=== PATIENT | female | born 1975 | race Caucasian/White ===

== ENCOUNTER 2022-02-10 08:37 | Outpatient (REF) | payer OTHER, SELFPAY ==
--- NOTE | 2022-02-10 08:30 | PAPFT_PTH ---
PATIENT: Bridget Couch LOC: [facility] U#:[id number] AGE/SX: 46/F ROOM: RE02/10/[address]: Gwen Red APRN : 1975 BED: DIS: 02/10/2022 SPEC #: [id number] RECD: 02/10/22 17:52 STATUS: OLIVERIO REQ #: [id number] THOMAS: 02/10/22 08:[address]: Gwen Red DEPT: [facility] Cytology RECD BY: Britt Hernandez ENTERED: 02/10/22 17:53 SP TYPE: PAPFT OTHR DR: Tracey Hernandez APRN Tissues: 1 - CX/ENDOCX FOR PAP SMEARS Procedures: PAP THIN PREP/UVM Screening Comments: [id number] (UNSATISFACTORY FOR EVALUATION)
== END 2022-02-10 08:38 | disposition home or self-care (01) ==
LOC: LBN 08:37
PROVIDERS: PCP Nurse Practitioner Family; Visit Provider Nurse Practitioner
DX: Z12.4 Encounter for screening for malignant neoplasm of cervix (principal); R87.615 Unsatisfactory cytologic smear of cervix
CPT/HCPCS: 88142

== ENCOUNTER → 2022-03-12 00:46 | Outpatient (CLI) | payer OTHER, SELFPAY ==
--- NOTE | 2022-03-12 08:15 | DI.US_ITS ---
Exam(s) US BREAST LT COMPLETE US BREAST RT COMPLETE MG MAMMO DIAGNOSTIC BI EXAM: MG MAMMO DIAGNOSTIC BI AND COMPLETE BILATERAL BREAST ULTRASOUND CLINICAL HISTORY: 6 mo f/u cat 3 mammo (Sep 23 in [place]),R92.8. TECHNIQUE: Both CC and MLO mammographic images of both breast were obtained with 3D tomosynthesis te chnique and utilizing computer aided detection (CAD). Also performed complete bilateral breast ultrasound including all 4 quadrants of both breasts, the re troareolar regions of both breasts and both axillary regions. COMPARISON: There are no prior images for comparison ([place]): Only prior reports available. FINDINGS: DIAGNOSTIC BILATERAL MAMMOGRAM: There are intact bilateral retropectoral implants. There are no spiculated masses nor malignant-appe aring microcalcification groups in either breast. In the left breast there are 2 adjacent small nodular densities lateral of center approximately 2 o'c lock position, larger of the 2 measuring 4 x 3 millimeters. No malignant-appearing microcalcificatio n groups in this region or elsewhere in either breast. Right breast reveals small asymmetric density laterally measuring approximately 5 x 3 millimeters, bu t equivocal on 3D imaging. No significant architectural distortion or skin thickening-traction either breast. COMPLETE BILATERAL BREAST ULTRASOUND: Left breast: There are 2 small microcysts in the upper outer quadrant at 2 o'clock and 3 o'clock posi tions, correspond to the findings on the mammogram. The 2 o'clock position microcyst measures 4 x 2 millimeters. The 3 o'clock position microcyst measures 2 x 2 millimeters. At the 4 o'clock position there is a lateral thoracic benign lymph node measuring 5 x 3 millimeters. There are no solid lesions in all 4 quadrants of the left breast. Retroareolar region unremarkable. Left axilla unremarkable. Right breast: Very subtle and difficult to reproduce finding at the 9 o'clock position which has appe arance of a tiny 3 x 1.5 millimeter microcyst. No other focal findings in all 4 quadrants. Retroare olar region unremarkable. Right axilla unremarkable. IMPRESSION: Benign-appearing bilateral findings including 2 microcysts in the upper-outer quadrant of the left br east (2 and 3 o'clock positions) and tiny benign-appearing micro cyst at 9 o'clock position of the ri ght breast. No solid lesions evident. No axillary adenopathy. Intact appearing bilateral retropectoral implants. Appropriate follow-up, as discussed by myself with the patient today, is repeat bilateral breast ultr asound in 6 months, with earlier imaging if a self detected breast change is noted.. The patient was informed of the findings and follow-up recommendations prior to leaving the [facility] t today. BI-RADS Category 3 - 6 month - Probably Benign Finding: Recommend follow-up mammography in 6 months Breast Density - Category B - Scattered areas of fibroglandular density Breast density Category C or D implies that the patient has dense breast tissue. Dense breast tissue can make it harder to find cancer on a mammogram. Dense breast tissue is also associated with an incr eased risk of breast cancer. This information about the result of the mammogram report was provided to the patient to raise their awareness. Use this report when you speak with the patient about their risks for breast cancer, which includes their family history. At that time, you may recommend additional screening tests (Ultrasoun d or MRI) as these tests may add significant information. A negative radiographic report should not delay biopsy if a dominant or clinically suspicious mass is present. Up to ten percent of cancers are not identified on mammography. A negative report may reinforce clinical impression. Adenosis and dense breasts may obscure an underlying neoplasm. False positive reports average 6 to 10%. Patient will receive a letter notifying them of these results.
== END ==
PROVIDERS: PCP Nurse Practitioner Family; Visit Provider Nurse Practitioner Family
DX: R92.8 Other abnormal and inconclusive findings on diagnostic imaging of breast (principal); R92.0 Mammographic microcalcification found on diagnostic imaging of breast
CPT/HCPCS: 76642; 77062; 77066; G0279

== ENCOUNTER 2022-03-13 19:35 | Emergency (ER) | payer OTHER, SELFPAY ==
[2022-03-13 19:39] VITALS: BP 111/78; PULSE 99; RESP 14; TEMP 36.6; O2SAT 99
--- NOTE | 2022-03-13 19:40 | ED.GENADUL_ITS ---
Discharge Plan Disposition Patient Disposition: HOME Condition: Stable Discharge Details Chief Complaint: Laceration Clinical Impression: Foreign body finger, Open wnd finger-complicated Primary Care Provider: Tracey Hernandez ED Provider: Aj Henson Home Meds and New Rx's Prescriptions: No Action multivitamin Tablet 1 tab PO DAILY diphenhydramine HCl [Benadryl Allergy] 25 mg tablet 25 mg PO QHS PRN omeprazole 20 mg capsule,delayed release(DR/EC) 20 mg PO DAILY Qty: 90 3RF Rx Instructions: Take 20 mg once daily in the morning at least 30 minutes before first meal mupirocin 2 % ointment 1 applic topical TID Qty: 15 0RF Discharge Instructions Instructions: Soft Tissue Foreign Body (ED) Additional Instructions: Please continue to take your antibiotics as prescribed. Please follow-up with [facility] hand specialty clinic next week. Please return to the emergency department if you develop worsening pain swelling pus drainage fevers chills or dysfunction of your finger or hand. Medical Decision Making 46-year-old female presents with poorly healing wound to the distal aspect of her second digit of her right hand for the last 2 months, afebrile nontoxic no systemic signs of illness, localized induration, 1 cm shallow wound with surrounding callus and scab, no fluctuance or purulence, flexion extension intact sensation and capillary refill intact, bedside ultrasound negative for foreign body in region of wound, x-ray displaying radiopaque structure more proximal to site of wound consider retained foreign body. Patient is currently on Keflex that was prescribed by urgent care. Will be given hand referral for next week for consideration of surgical removal of potential foreign body. At this time patient is neurovascularly intact, motor function is intact patient has no systemic signs of illness. Will be discharged home with care instructions and return precautions. HPI General Date/Time Provider Initiated Documentation: 03/13/22 19:39 . HPI Narrative: 46-year-old female presents with 2 months of right index finger pain developed a small wound at the tip of her finger which has never fully healed denies pus drainage fevers chills nausea vomiting or other systemic signs of illness. Was seen recently at urgent care and started on Keflex and is scheduled for an outpatient ultrasound to assess for any retained foreign body. Does not remember any injury to the finger. Related Data Home Medications Medication Instructions Recorded Confirmed diphenhydramine HCl 25 mg tablet 25 mg PO QHS PRN 12/10/21 03/13/22 (Benadryl Allergy) multivitamin 1 tab PO DAILY 12/10/21 03/13/22 omeprazole 20 mg capsule,delayed 20 mg PO DAILY #90 caps 12/10/21 03/13/22 release cephalexin 500 mg capsule 500 mg PO QID 03/13/22 03/13/22 mupirocin 2 % topical ointment 1 applic topical TID #15 grams 03/13/22 03/13/22 Previous Rx's Medication Instructions Recorded omeprazole 20 mg capsule,delayed 20 mg PO DAILY #90 caps 12/10/21 release mupirocin 2 % topical ointment 1 applic topical TID #15 grams 03/13/22 Allergies Allergy/AdvReac Type Severity Reaction Status Date / Time pollen extracts Allergy Verified 03/13/22 19:42 Review of Systems Narrative: Review of Systems Constitutional: negative Eyes: negative ENT: negative Cardiovascular: negative Respiratory: negative Gastrointestinal: negative : negative Musculoskeletal: negative Skin: Finger pain, wound Neurologic: negative Psych: negative PFSH All Active Problems (Updated 03/13/22 @ 19:46 by Aj Henson MD) Foreign body finger (Acute) Open wnd finger-complicated (Acute) Raynaud's syndrome (Acute) Abnormal finding on mammography (Acute 07/29/21) note to US, oval nodule, 6 mm in superior rgt Breast located 4 cm form nipple GERD (gastroesophageal reflux disease) (Chronic) Medical History Anemia iron deficient 08/20/20 TIBC 352, Iron 201, Iron Sat 57, Ferritin 53 Anxiety Thyroid nodule (05/21/21) U/S nontoxic single thyroid nodule, no further f/up Surgical History History of augmentation mammoplasty (2007) History of bilateral tubal ligation (2017) Status post LASIK surgery of both eyes (~2009) Family History Maternal Aunt Cancer throat Father Diabetes Mother Arthritis Paternal Grandmother Diabetes Social History Smoking/Tobacco Use Status: Never Smoking risk assessment performed?: Yes Alcohol Intake: current Alcohol Intake frequency: 0-2 drinks per day Drug use: Never Substance use type: does not use Adopted: No Caregiver/Support person: No Foster care: No Household members: significant other Housing: house Number of Children: 0 number of grandchildren: 0 Communication Needs: None Education Level: college Details: Bachelor's Degree Do you need help understanding health information?: Rarely 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 [employer] Pets and animals: Yes Pets and animals: dog(s) Sexually active: Yes Do you think of yourself as: straight/heterosexual Current gender identity: female What is your relationship status?: living with partner How often do you talk on the phone with friends or family?: three or more times per week How often do you get together with friends or relatives?: twice per week Do you belong to any clubs or organized social groups?: no Panel score (0-1 are the most socially isolated patients): 2 What type of physical activity do you participate in: other Details: rowing machine Duration: 15-30 minutes/day Frequency: 3-4 times per week Deisy/Rastafari: Worship Special deisy needs: No Seatbelt use: always Helmet use: Yes Helmet use: always Drive intox or ride w/intox wheelchair van driver: No Do you feel safe at home: Yes Do you feel safe in your relationship?: Yes Victim of physical abuse: No Victim of emotional abuse: No Victim of sexual abuse: No Would you like helpful sources: No Exam Narrative Exam Narrative: Physical Examination General: alert, awake, cooperative, resting comfortably, no acute distress HEENT: normocephalic, atraumatic; PERRL, EOM intact, conjunctiva normal; no nasal discharge; moist mucous membranes, oral and pharyngeal mucosa normal, tolerating secretions Neck: supple, trachea midline; full ROM Chest: normal to inspection Respiratory: normal respiratory effort, speaking in full sentences, clear to auscultation, no wheezing, rales or rhonchi Cardiac: regular rate, regular rhythm, S1S2 intact, no murmurs rubs or gallops GI: abdomen soft, non-tender, non-distended; no palpable mass or hepatosplenomegaly Skin: no lesions, rashes or trauma appreciated Neuro: AAOx3, normal speech, moving all extremities Extremities: 1 cm linear wound to distal tip of second digit of right hand shallow in nature, with well-formed surrounding callus and scab, no purulent drainage no fluctuance noted flexion and extension intact however flexion is limited by swelling to the distal aspect of the finger, sensation intact good capillary refill no lymphangitic streaking up the limb sensory exam median radial and ulnar nerve intact Psych: Appropriate mood and affect
--- NOTE | 2022-03-13 19:45 | DI.RAD_ITS ---
Exam(s) XR FINGER RT INDEX EXAM: XR FINGER RT INDEX CLINICAL HISTORY: chronic wound distal finger, concern foreign body. TECHNIQUE: 2D digital imaging was performed. Three views. COMPARISON: No exams were available for comparison FINDINGS: BONES: No acute fracture is present. No bony destructive lesion is seen. JOINTS: No dislocation present. SOFT TISSUE: There is a small soft tissue defect at the tip of the finger. There is no foreign body adjacent to this wound. There is a small rounded density which appears to represent a calcification within the soft tissues at the radial aspect of the soft tissues at the level of the distal interphal angeal joint. No metallic foreign body is seen. IMPRESSION: Distal soft tissue wound without adjacent foreign body. Calcification noted at the level of the dist al interphalangeal joint. No evidence of acute fracture, dislocation, or subluxation. DATA REPOSITORY: RADIATION DOSE DELIVERED:
--- NOTE | 2022-03-13 19:48 | NUR.NOTE ---
Referral to Care Management to refer to [facility] for f/b right index finger.Nursing Note:
--- NOTE | 2022-03-13 20:15 | DI.VRAD_ITS ---
PROCEDURE INFORMATION: Exam: XR Right Finger(s) Exam date and time: 03/13/2022 7:28 PM Age: 46 years old Clinical indication: Other: Wound distal index finger, concern foreign body TECHNIQUE: Imaging protocol: Radiologic exam of the Right fingers. Views: Minimum 2 views. COMPARISON: No relevant prior studies available. FINDINGS: Bones/joints: No fracture or dislocation. Soft tissues: Small radiopaque focus along the volar and radial side of the distal interphalangeal joint. This focus measures 13 x 5 mm. Recommend clinical correlation. No soft tissue gas. IMPRESSION: Small soft tissue foreign body in the distal aspect of the right index finger as detailed above. Dictated and Authenticated by: Marcial Merchant MD. Ordering:JOSELINE Rocha MD
== END 2022-03-13 19:53 | disposition home or self-care (01) ==
PROVIDERS: Emergency Provider Emergency Medicine; PCP Nurse Practitioner Family
DX: S61.200A Unspecified open wound of right index finger without damage to nail, initial encounter (principal); S60.450A Superficial foreign body of right index finger, initial encounter; X58.XXXA Exposure to other specified factors, initial encounter
CPT/HCPCS: 99284; 73140; 99282

== ENCOUNTER 2022-03-17 08:42 | Outpatient (REF) | payer OTHER, SELFPAY ==
--- NOTE | 2022-03-17 08:15 | PAPFT_PTH ---
PATIENT: Bridget Couch LOC: [facility] U#:[id number] AGE/SX: 46/F ROOM: RE03/17/[address]: Gwen Red APRN : 1975 BED: DIS: 03/17/2022 SPEC #: [id number] RECD: 03/17/22 15:02 STATUS: ANTHONYBrenda REQ #: [id number] THOMAS: 03/17/22 08:[address]: Gwen Red DEPT: [facility] Cytology RECD BY: Sue Chen ENTERED: 03/17/22 15:04 SP TYPE: PAPFT OTHR DR: Tracey Hernandez APRN Tissues: 1 - CX/ENDOCX FOR PAP SMEARS Procedures: PAP THIN PREP/UVM Screening HPV DNA PROBE Comments: [id number]
== END 2022-03-17 08:43 | disposition home or self-care (01) ==
LOC: LBN 08:42
PROVIDERS: PCP Nurse Practitioner Family; Visit Provider Nurse Practitioner
DX: Z12.4 Encounter for screening for malignant neoplasm of cervix (principal); Z11.51 Encounter for screening for human papillomavirus (HPV)
CPT/HCPCS: 88142; 87624

== ENCOUNTER 2022-05-03 16:09 | Outpatient (REF) | payer OTHER, SELFPAY ==
[2022-05-03 10:01] LABS: Source Nasal/Nares
[2022-05-03 13:42] LABS: COVID-19 PCR Negative (Negative)
== END 2022-05-03 16:10 | disposition home or self-care (01) ==
LOC: LBN 16:09
PROVIDERS: PCP Nurse Practitioner Family; Visit Provider Nurse Practitioner Family
DX: Z20.822 Contact with and (suspected) exposure to COVID-19 (principal)
CPT/HCPCS: 87635

== ENCOUNTER → 2023-03-22 01:56 | Outpatient (CLI) | payer OTHER, SELFPAY ==
--- NOTE | 2023-03-22 07:30 | DI.MAMMO_ITS ---
Exam(s) MG MAMMO SCREENING 60 MIN DUR EXAM: MG MAMMO SCREENING 60 MIN DUR CLINICAL HISTORY: breast cancer screening,implants, z12.39 TECHNIQUE: Bilateral full field digital CC and MLO mammographic images were obtained with 3D tomosyn thesis and utilizing computer aided detection (CAD). COMPARISON: Available for comparison. FINDINGS: Masses/Architectural Distortion: There is a new 4 mm nodule seen 4 cm from the nipple on the right im plant displaced MLO view. Microcalcifications: No suspicious pleomorphic-type are seen. Skin Thickening/Nipple Retraction: None. IMPRESSION: 1. New 4 mm nodule in the right breast on the MLO implant displaced views. 2. This area should be further evaluated with a spot compression view. Limited right breast ultrasou nd may be indicated at that time. BI-RADS Category 0 - Assessment Incomplete: Need additional imaging evaluation Breast Density - Category B - Scattered areas of fibroglandular density Breast density category C or D implies that the patient has dense breast tissue. Dense breast tissue is very common and is not abnormal but dense breast tissue can make it harder to find cancer on a ma mmogram. Also, dense breast tissue may increase their breast cancer risk. This information about the result of the mammogram report was provided to the patient to raise their awareness. Use this report when you speak with the patient about their risks for breast cancer, which includes their family hist ory. At that time, you may recommend for more screening tests (Ultrasound or MRI) as they might be us eful based on their risk. A negative radiographic report should not delay biopsy if a dominant or clinically suspicious mass is present. Up to ten percent of cancers are not identified on mammography. A negative report may reinforce clinical impression. Adenosis and dense breasts may obscure an underlying neoplasm. False positive reports average 6 to 10%. Patient will receive a letter notifying them of these results.
== END ==
PROVIDERS: PCP Nurse Practitioner Family; Visit Provider Nurse Practitioner Family
DX: Z12.31 Encounter for screening mammogram for malignant neoplasm of breast (principal)
CPT/HCPCS: 77063; 77067

== ENCOUNTER → 2023-03-26 00:19 | Outpatient (CLI) | payer OTHER, SELFPAY ==
--- NOTE | 2023-03-26 | DI.MAMMO_ITS ---
Exam(s) MG MAMMO SCREEN CALL BACK UNI US BREAST RT LIMITED EXAM: MG MAMMO SCREEN CALL BACK UNI and U/S breast RT limited CLINICAL HISTORY: 4 MM NODULE RT BREAST R92.8 ABNL MAMMO. TECHNIQUE: Craniocaudal and mediolateral oblique Full Field Digital Mammography views of the right b reast with Computer Aided Diagnosis followed by Tomosynthesis and right breast ultrasound. COMPARISON: Comparison is made with prior examinations. FINDINGS: Mammography/Tomosynthesis: Masses/Architectural Distortion: There is a faint well-circumscribed nodule which persists in the upp er retroareolar region of the right breast. It appears to been present on the examination from 2021. Microcalcifictions: No suspicious pleomorphic-type are seen. Skin Thickening/Nipple Retraction: None. Limited right breast US: Echotexture: Normal appearance of the glandular tissue. Shadowing: No suspicious foci. Cyst: None. Solid lesions: None seen. Ductal dilation: None. IMPRESSION: 1. No definite evidence of malignancy is noted. 2. A six-month follow-up right mammogram is requested for re-evaluation. 3. The findings were discussed with the patient on the date of the examination. BI-RADS Category 3 - 6 month - Probably Benign Finding: Recommend follow-up imaging in 6 months Breast Density - Category B - Scattered areas of fibroglandular density Breast density Category C or D implies that the patient has dense breast tissue. Dense breast tissue can make it harder to find cancer on a mammogram. Dense breast tissue is also associated with an incr eased risk of breast cancer. This information about the result of the mammogram report was provided to the patient to raise their awareness. Use this report when you speak with the patient about their risks for breast cancer, which includes their family history. At that time, you may recommend additional screening tests (Ultrasoun d or MRI) as these tests may add significant information. A negative radiographic report should not delay biopsy if a dominant or clinically suspicious mass is present. Up to ten percent of cancers are not identified on mammography. A negative report may reinforce clinical impression. Adenosis and dense breasts may obscure an underlying neoplasm. False positive reports average 6 to 10%. Patient will receive a letter notifying them of these results.
== END ==
PROVIDERS: PCP Nurse Practitioner Family; Visit Provider Nurse Practitioner Family
DX: Z12.31 Encounter for screening mammogram for malignant neoplasm of breast (principal); R92.8 Other abnormal and inconclusive findings on diagnostic imaging of breast
CPT/HCPCS: 76642; 77063; 77067

== ENCOUNTER → 2023-09-21 03:53 | Outpatient (CLI) | payer BC, SELFPAY ==
--- NOTE | 2023-09-21 | DI.MAMMO_ITS ---
Exam(s) MAMMO DIAGNOSTIC UNI EXAM: MAMMO DIAGNOSTIC UNI-RIGHT CLINICAL HISTORY: 6 MO F/U, R92.8, ABNL FINDING ON MAMMO. TECHNIQUE: Unilateral right breast CC and MLO views were performed with out and with implant displac ement technique. Mammographic images were obtained with 3D tomosynthesis technique and utilizing ABODOer aided detection (CAD). COMPARISON: Prior mammograms were reviewed, the most recent being March 2023 and ultrasound perform ed at that time was also reviewed.. FINDINGS: The previously described asymmetric density-possible nodule located 4 cm in from the nipple on the ML O view is less evident on the present study. IMPRESSION: No radiographic evidence of malignancy in the right breast Appropriate follow-up is to keep this patient on her yearly mammogram schedule, with earlier imaging if a self detected breast change is noted.. The patient was informed of the findings and follow-up recommendations by myself prior to leaving the department today. BI-RADS Category 2 - Benign Findings Breast Density - Category B - Scattered areas of fibroglandular density Breast density Category C or D implies that the patient has dense breast tissue. Dense breast tissue can make it harder to find cancer on a mammogram. Dense breast tissue is also associated with an incr eased risk of breast cancer. This information about the result of the mammogram report was provided to the patient to raise their awareness. Use this report when you speak with the patient about their risks for breast cancer, which includes their family history. At that time, you may recommend additional screening tests (Ultrasoun d or MRI) as these tests may add significant information. A negative radiographic report should not delay biopsy if a dominant or clinically suspicious mass is present. Up to ten percent of cancers are not identified on mammography. A negative report may reinforce clinical impression. Adenosis and dense breasts may obscure an underlying neoplasm. False positive reports average 6 to 10%. Patient will receive a letter notifying them of these results.
== END ==
PROVIDERS: PCP Nurse Practitioner Family; Visit Provider Nurse Practitioner Family
DX: Z12.31 Encounter for screening mammogram for malignant neoplasm of breast (principal); R92.8 Other abnormal and inconclusive findings on diagnostic imaging of breast
CPT/HCPCS: 77061; 77065; G0279